=== PATIENT | male | born 1940 | race Caucasian/White ===

== ENCOUNTER 2016-08-23 05:56 | Emergency (ER) | payer MEDICARE, OTHER ==
[~2016-08-23] VITALS: Ht 175.3 cm; Wt 85.0 kg
[2016-08-23] MEDS ORDERED: ZYPR20TA PO (06:29)
[2016-08-23] MEDS ORDERED: CELE20TA PO (06:29)
[2016-08-23] MEDS ORDERED: REST30CA PO (06:29)
[2016-08-23] MEDS ORDERED: LORA-474 PO (06:29)
[2016-08-23] MEDS ORDERED: AMLO10 PO (06:29)
[2016-08-23 06:30] VITALS: BP 157/76; PULSE 73; RESP 16; TEMP 98.2; O2SAT 98
--- NOTE | 2016-08-23 06:46 | PD ---
HPI Chief Complaint: Psychiatric Symptoms Time Seen by Provider: 06:43 Travel History International Travel<30 days: No Contact w/Intl Traveler<30days: No Traveled to known affect area: No History of Present Illness HPI 76-year-old male arrives as a Lemus act from [facility]. He reports suicidal ideations intermittently. He also experiences auditory hallucination. He has a history of schizophrenia. At the time of my examination he denies suicidal ideation however reports the feeling comes and goes. Severity moderate. Location neuropsychiatric. PFSH Past Medical History Immunizations Current: Yes Tetanus Vaccination: Unknown Influenza Vaccination: No Social History Alcohol Use: No Tobacco Use: No Substance Use: No Allergies-Medications (Allergen,Severity, Reaction): Coded Allergies: No Known Allergies (Unverified , 08/23/16) Reported Meds & Prescriptions Reported Meds & Active Scripts Active Reported Norvasc (Amlodipine Besylate) 10 Mg Tab 10 Mg PO DAILY Restoril (Temazepam) 30 Mg Cap 30 Mg PO HS PRN Ativan (Lorazepam) 1 Mg Tab 1 Mg PO DAILY PRN Celexa (Citalopram Hydrobromide) 20 Mg Tab 20 Mg PO DAILY Zyprexa (Olanzapine) 20 Mg Tab 20 Mg PO DAILY Review of Systems Except as stated in HPI: all other systems reviewed are Neg Physical Exam Narrative GENERAL: 76-year-old male well-nourished well-developed SKIN: Focused skin assessment warm/dry. HEAD: Atraumatic. Normocephalic. EYES: Pupils equal and round. No scleral icterus. No injection or drainage. ENT: No nasal bleeding or discharge. Mucous membranes pink and moist. NECK: Trachea midline. No JVD. CARDIOVASCULAR: Regular rate and rhythm. No murmur appreciated. RESPIRATORY: No accessory muscle use. Clear to auscultation. Breath sounds equal bilaterally. GASTROINTESTINAL: Abdomen soft, non-tender, nondistended. Hepatic and splenic margins not palpable. MUSCULOSKELETAL: No obvious deformities. No clubbing. No cyanosis. No edema. NEUROLOGICAL: Awake and alert. No obvious cranial nerve deficits. Motor grossly within normal limits. Normal speech. PSYCHIATRIC: Patient is a Lemus act. He has seasonal ideation. Data Data Last Documented VS Vital Signs Date Time Temp Pulse Resp B/P Pulse Ox O2 Delivery O2 Flow Rate FiO2 08/23/16 06:30 98.2 73 16 157/76 98 Vital signs reviewed MDM Medical Decision Making Medical Screen Exam Complete: Yes Emergency Medical Condition: Yes Medical Record Reviewed: Yes Differential Diagnosis Altered mental status/psychosis due to infection/environmental exposure/ metabolic abnormality, polypharmacy, alcohol abuse/intoxication, illicit or prescribed drug abuse, malingering/secondary gain, non-organic psychiatric disease Narrative Course The history of present illness, ROS, physical exam, review of records and medical workup performed for today's visit have reasonably safely excluded organic etiologies for the patient's presenting complaint. We will continue to monitor the patient carefully in the ER until time of evaluation by the psychiatry service. We are available for any additional medical assistance if needed during the patient's ER course. Disposition per discretion of psychiatry is appreciated. Please refer to the sending hospital records which reveal blood work that is essentially unremarkable. Diagnosis Primary Impression: Suicidal ideation Admitting Information Admitting Physician Requests: Lai Padilla MD August 23, 2016 06:46
[2016-08-23] MEDS ORDERED: TAMS0.4C4 PO (08:39)
[2016-08-23] MEDS ORDERED: ZOLP5TAB3 PO (08:39)
[2016-08-23] MEDS ORDERED: SERT-129 PO (08:39)
[2016-08-23 10:00] VITALS: BP 163/70; PULSE 72; RESP 18; O2SAT 97
--- NOTE | 2016-08-23 13:15 | PD ---
History of Present Illness Chief Complaint: Psychiatric Symptoms Time Seen by Provider: 12:30 Travel History International Travel<30 Days: No Contact w/Intl Traveler<30days: No Known affected area: No Legal Status Legal Status: Lemus Act Lemus Act Signed By: Anamaria Stone History of Present Illness: History of Present Illness HPI 76-year-old male with a reported history of schizophrenia who arrives as a Lemus act from [facility]. The report reads as follows: Suicidal statements, intent to shoot self, hearing voices to kill himself. EMR is reviewed. No previous contact with [facility] psychiatry. Patient is seen along with GRETA Vaca. He is asleep but awakens easily. He has a long moreira haynes and long hair. He is calm and cooperative. His speech is clear, normal rate and tone. There is no mouna or hypomania. During this evaluation he did not appear internally preoccupied and was not observed responding to internal stimuli. When asked about reason for visit he states " I need to check into a mental hospital. I hear voices that tell me to kill myself as well as I see lights that move and various shapes." He has been hearing these voices for many years " since 1964" and they come and go. He has never acted on such voices. He states that he felt suicidal 3 weeks ago but he has not harmed himself. He last felt this way " 15 years ago and he tried to buy a gun but did not proceed with the plan . He did so with out any outside intervention. He endorses medication compliance when asked several times . I looked at his medicine bottles and they are dated 2014. When I questioned him about this he continued to endorse that he takes his medication. He was not able to tell me who the prescriber was. In terms of current living situation he has been staying at different motels in [place] since he had plans to move there but " It's too expensive so I want to go to [place]". Yesterday morning he was asked to leave a motel; in [place] " because I ran out of money and it was check out time". From there he presented to the hospital . He does not endorse any suicidal ideation, intent or plan at this time and tells me that he will take the bus to [place] when he is released. [facility] Past Medical History Immunizations Current: Yes Tetanus Vaccination: Unknown Influenza Vaccination: No Psychiatric History Psychiatric History Hx Psychiatric Treatment: Began [facility] in [facility]. has had multiple hosp but unable to provide further details. he has medication bottles from [facility] History of Inpatient Treatment: Yes Guns or firearms in home: No Social History Single, homeless , male. Broke up with his girlfriend 3 months ago. has one daughter but has no contact with her. Disabled. Hx Alcohol Use: Yes (Stajesse had a drink yesterday) Hx Tobacco Use: No Hx Substance Use: No Hx of Substance Use Treatment: No Family Psychiatric History Neagtive Allergies-Medications (Allergen,Severity, Reaction): Coded Allergies: No Known Allergies (Unverified , 08/23/16) Reported Meds & Prescriptions Reported Meds & Active Scripts Active Reported Tamsulosin (Tamsulosin HCl) 0.4 Mg Cap 0.4 Mg PO HS Zolpidem (Zolpidem Tartrate) 5 Mg Tab 5 Mg PO HS PRN Sertraline (Sertraline HCl) 100 Mg Tab 100 Mg PO DAILY Norvasc (Amlodipine Besylate) 10 Mg Tab 10 Mg PO DAILY Restoril (Temazepam) 30 Mg Cap 30 Mg PO HS PRN Ativan (Lorazepam) 1 Mg Tab 1 Mg PO DAILY PRN Celexa (Citalopram Hydrobromide) 20 Mg Tab 20 Mg PO DAILY Zyprexa (Olanzapine) 20 Mg Tab 20 Mg PO DAILY Review of Systems Except as stated in HPI: all other systems reviewed are Neg Exam Alert: Yes [place]: Person (ox3) Mood: Calm Affect: Restricted Speech: Clear, Logical Eye Contact: Indirect Memory Intact: Comment (not formally tetsed. Grossly intact) Hallucinations: Auditory (come and go. Murmurs at times clear) Delusions: No Suicidal: Ideation (negative) Homicidal: Ideation (neagtive) Insight/Judgement Poor. Poor MDM Medical Decision Making Medical Record Reviewed: Yes Assessment/Plan Lift BA. Patient at this time does not meet criteria for BA. he denies current suicidal ideation. Currently not actively psychotic. He has plans to continue his journey to [place] at this time to find a boarding house. 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
== END 2016-08-23 14:46 | disposition home or self-care (01) ==
LOC: NEPE 05:56
DX: F20.3 Undifferentiated schizophrenia (principal)
CPT/HCPCS: 99283